=== PATIENT | male | born 1975 | race Caucasian/White ===

== ENCOUNTER → 2021-04-28 | Day surgery (SDC) | payer OTHER ==
[~2021-04-28] VITALS: Ht 177.8 cm; Wt 111.6 kg
[~2021-04-28] MED LIST: ACETAMINOPHEN500 M1 PO; ASPIRIN EC81 MG PO; BYSTOLIC2.5 MG PO; COLACE100 MG PO; CRESTOR40 MG PO; DRISDOL50000 UNIT PO; FARXIGA10 MG PO; FENOFIBRATE160 MG PO; LOVAZA1 GM PO; METFORMIN HCL1000 MG PO; MOTRIN600 MG PO; NIACIN1000 MG PO; OXY-IR 5MG5 MG PO; PRILOSEC20 MG PO; ZETIA10 MG PO
[2021-04-28 07:38] LABS: BUN/CREAT RATIO (CALC) 20.5 RATIO; CREATININE 0.73 mg/dL (0.67-1.17); POTASSIUM 4.3 mmol/L (3.5-5.1)
== END | disposition home or self-care (01) ==
LOC: FAS 06:29
PROVIDERS: Anesthesiology
DX: K43.0 Incisional hernia with obstruction, without gangrene (principal); E11.9 Type 2 diabetes mellitus without complications; I10 Essential (primary) hypertension; E78.00 Pure hypercholesterolemia, unspecified; G47.33 Obstructive sleep apnea (adult) (pediatric); K21.9 Gastro-esophageal reflux disease without esophagitis; Z87.891 Personal history of nicotine dependence; Z99.89 Dependence on other enabling machines and devices; Z79.82 Long term (current) use of aspirin; Z79.84 Long term (current) use of oral hypoglycemic drugs; Z79.899 Other long term (current) drug therapy
CPT/HCPCS: 36415; 80048; 82962; 93005; C1781; J0690; J1100; J1170; J1644; J1885; J2250; J2405; J2704; J2710; J3010; J7120